=== PATIENT | male | born 1950 | race Caucasian/White ===

== ENCOUNTER → 2023-11-06 | Day surgery (SDC) | payer MEDICARE ==
[2023-10-26 10:13] VITALS: BMI 28.5
[~2023-11-06] MED LIST: Heparin 10,000 UNITS/ 10 ML VIAL ONE; Iopamidol 300 61% 100 ML VIAL FS ONE; Lidocaine 1% (PF) 30 ML VIAL ONE; Midazolam HCl 2 mg/2 ml Vial ONE; Nitroglycerin 50 MG/250 ML BOT 250 ML ONE; Verapamil 5 MG/2 ML VIAL ONE; fentaNYL 50 mcg/mL 1 mL Vial ONE
[2023-11-06 11:57] VITALS: BP 149/73; TEMP 98.6
== END ==
LOC: CSHCCL 10:47
PROVIDERS: ATTEND Specialist
PROC: 4A023N7 Measurement of Cardiac Sampling and Pressure, Left Heart, Percutaneous Approach (ICD-10-PCS; principal; 2023-11-06)
PROC: B205YZZ Plain Radiography of Left Heart using Other Contrast (ICD-10-PCS; 2023-11-06)
DX: I25.10 Atherosclerotic heart disease of native coronary artery without angina pectoris (principal); R94.39 Abnormal result of other cardiovascular function study
CPT/HCPCS: 93458; C1769 ×2; C1894; J1644; J2001; J2250; J3010; 99152; Q9967